=== PATIENT | female | born 1955 | race Caucasian/White ===

== ENCOUNTER 2021-04-06 09:00 | Day surgery (SDC) | payer OTHER ==
[2021-04-06] VITALS (12 sets, daily range): BP systolic 160–187; BP diastolic 84–97
[~2021-04-06] VITALS: Ht 160 cm; Wt 59.2 kg
[2021-04-06 07:32] LABS: HEMATOCRIT 34 % (35-52); HEMOGLOBIN 10.9 g/dL (11.5-16.0); MEAN CORPUSCULAR HEMOGLOBIN 27 pg (25-34); MEAN CORPUSCULAR HGB CONC 33 g/dL (32-36); MEAN CORPUSCULAR VOLUME 83 fL (80-99); MEAN PLATELET VOLUME 10.1 fL (9.0-12.2); PLATELET COUNT 459 10^3/uL (130-400); WHITE BLOOD COUNT 6.6 10^3/uL (4.3-11.0)
[2021-04-06 07:43] LABS: PROTHROMBIN TIME PATIENT 13.6 SEC (12.2-14.7)
[2021-04-06 07:52] LABS: ALBUMIN 4.1 GM/DL (3.2-4.5); BILIRUBIN,TOTAL 0.4 MG/DL (0.1-1.0); CALCIUM 9.4 MG/DL (8.5-10.1); CREATININE SERUM 1.24 MG/DL (0.60-1.30); POTASSIUM 3.8 MMOL/L (3.6-5.0); TOTAL PROTEIN 6.9 GM/DL (6.4-8.2)
--- NOTE | 2021-04-06 08:14 | Diagnostic Imaging Report ---
Indication: Coronary artery disease. Chest pain. FINDINGS: Portable chest. Lungs are well-aerated and clear. Heart is not enlarged. Median sternotomy changes are present. Pulmonary vasculature is normal. No pneumothorax or pleural effusion. IMPRESSION: Postsurgical changes otherwise normal portable chest. Dictated by: Dictated on workstation # [id number]
[~2021-04-06 09:00] MED LIST: ASPI-1238 PO; ATOR80TA76 PO; CARV25TA PO; CHOL200014 PO; CLOP75TA69 PO; CYAN500T8 PO; FURO-125 PO; HEParin (CATH LAB) 2,000 ML IV ONE; INSU100V6 SQ; LACT1CAP72 PO; LIDOCAINE 1% INJ 20 ML 20 ML VIAL ONE; METF-397 PO; NS IV 1000 ML 1,000 ML IV SCH; NS IV 1000 ML 1,000 ML ONE; PANT40TA52 PO; RAMI5CAP65 PO; UBID100C44 PO
[2021-04-06] MEDS ORDERED: HEParin 1000 UNIT/ML (10ML VIAL) FOR BOLUS ONE (09:19)
[2021-04-06] MEDS ORDERED: NITRO DRIP 25000 MCG/D5W 250 ML IV ONE (09:20)
[2021-04-06] MEDS ORDERED: fentaNYL INJ 100 MCG/2 ML AMP ONE (10:05)
[2021-04-06] MEDS ORDERED: MIDAZOLAM 2 MG/2 ML (VERSED) VIAL ONE (10:05)
[2021-04-06] MEDS ORDERED: CLOPIDOGREL 300 MG (PLAVIX) TABLET PO ONE (10:51)
[2021-04-06] MEDS ORDERED: ASPIRIN 325 MG (5 GR) TABLET ONE (10:51)
[2021-04-06] MEDS ORDERED: PATIENT MAY USE OWN MEDS, ALL PO SCH (11:00)
--- NOTE | 2021-04-06 11:03 | Conscious Sedation/ASA ---
Conscious Sedation Pre-Proced Time 09:00 ASA Score 3 For ASA 3 and 4: Consider anesthesia and medical clearance. Also, for patients with a history of failed moderate sedation consider anesthesia. Airway Lungs Heart ASA score ASA 1: a normal healthy patient ASA 2: a patient with a mild systemic disease (mid diabetes, controlled hypertension, obesity x ASA 3: a patient with a severe systemic disease that limits activity (angina, COPD, prior Myocardial infarction) ASA 4: a patient with an incapacitating disease that is a constant threat to life (CHF, renal failure) ASA 5: a moribund patient not expected to survive 24 hrs. (ruptured aneurysm) ASA 6: a declared brain- patient whose organs are being harvested. For emergent operations, add the letter E after the classification Mallampati Classification Grade 3 Sedation Plan Analgesia, Amnesia, Plan communicated to team members, Discussed options with patient/fam, Discussed risks with patient/fam The patient is an appropriate candidate to undergo the planned procedure, sedation, and anesthesia. The patient immediately re-assessed prior to indication. ANTOINETTE UQAN MD Apr 06, 2021 11:03
--- NOTE | 2021-04-06 11:09 | Peripheral Report ---
Peripheral Report Physician (s)/Import Coordination And Production Head (s) Physician ANTOINETTE QUAN MD Pre-Procedure Diagnosis Pre-Procedure Diagnosis: Peripheral arterial disease Post-Procedure Note Procedure Start Date: Apr 06, 2021 Name of Procedure: Bilateral lower extremity runoff Third order Additional imaging Stenting to the right SFA and popliteal Findings/Procedure Note PROCEDURE NOTE: 65-year-old lady with history of coronary artery disease, peripheral arterial disease, multiple intervention, has been having significant claudication, had an abnormal BENITO bilaterally more significant on the right. Scheduled for pe ripheral angiogram. After explaining the procedure to the patient, all pros and cons were explained, all questions were answered. The patient signed the consent and then she was placed on the cardiac catheterization laboratory. The patient was placed on the cardiac catheterization laboratory. Groin was prepped SL fashion local anesthesia was used. Sheath placed in the left femoral artery, runoff to the left leg was done. Rim catheter was used to cross over and a Storq wire was used, straight catheter advanced to the right common femoral artery, runoff to the right leg was done. Patient had total occlusion of the right SFA. 6000 units of heparin were used then I placed 45 cm, 6 Angolan sheath advanced instead of the short catheter then I used multiple wires to cross the total occlusion of the right SFA then advanced a mini catheter to the popliteal artery did manual injection showing position within the lumen then I did predilatation using 5.0 then 6.0 balloon and deployed multiple stents extending from the popliteal to the ostium of the right SFA, I was trying to avoid the popliteal but there was significant lesion behind the knee. Straight catheter was advanced to the popliteal artery and I did DSA imaging to the trifurcation and at the level of the foot. At the end of the case I exchanged the sheath back to a short 6 Angolan sheath and put a pigtail catheter in the abdominal aorta just above the bifurcation and evaluated the bifurcation, no complication noted. FINDINGS: Left lower extremity: Patient has multiple stents in the SFA with moderate to severe stenosis at multiple segments requiring evaluation at a later point Right lower extremity, total occlusion of the right SFA and popliteal, complex intervention with multiple wires balloons and stents. Deployment of total of 4 stents starting distally at the popliteal using superior 5.5 x 100 followed by superior 5.5 x 150 then superior 6.0 x 150 then at the ostium I used absolute Pro 6.0 x 40 with excellent results. Below the knee there is a single vessel running down to the foot the peroneal artery giving collaterals to both sides CONCLUSIONS: 1. Total occlusion of the right SFA and popliteal successful complex intervention with deployment of 4 stents with excellent results. 2. Below the knee on the right side there is severe stenosis with only single- vessel runoff down to the foot, the peroneal artery giving collaterals at the level of the foot 3. Multiple stents at the left SFA with moderate severe stenosis at multiple segment requiring intervention at a later point 4. Atherosclerotic disease at the abdominal aorta with heavy calcification at the iliac arteries, nonobstructive disease DISCUSSION AND RECOMMENDATIONS: Continue to maximize medical therapy, educated on smoking cessation, planning to intervene on the left leg at a later point Anesthesia Type: Conscious Sedation Estimated blood loss (mL): 35 ml Contrast Amount: 86 ml Total Radiation Dose: 194 mGy Post-Procedure Diagnosis Post-operative diagnosis: Claudication Peripheral arterial disease Hypertension Hyperlipidemia ANTOINETTE QUAN MD Apr 06, 2021 11:08
[2021-04-06] MEDS: NS IV 1000 ML 1,000 ML IV SCH ×3 (12:42→21:52)
[2021-04-06] MEDS ORDERED: RAMIPRIL 5 MG (ALTACE) CAP PO SCH (21:00)
[2021-04-07 03:00] LABS: HEMATOCRIT 32 % (35-52); HEMOGLOBIN 10.1 g/dL (11.5-16.0); MEAN CORPUSCULAR HEMOGLOBIN 27 pg (25-34); MEAN CORPUSCULAR HGB CONC 31 g/dL (32-36); MEAN CORPUSCULAR VOLUME 85 fL (80-99); MEAN PLATELET VOLUME 10.3 fL (9.0-12.2); PLATELET COUNT 405 10^3/uL (130-400); WHITE BLOOD COUNT 10.3 10^3/uL (4.3-11.0)
[2021-04-07 03:08] LABS: POTASSIUM 3.6 MMOL/L (3.6-5.0)
[2021-04-07 03:09] LABS: CALCIUM 9.3 MG/DL (8.5-10.1)
[2021-04-07 03:14] LABS: CREATININE SERUM 1.08 MG/DL (0.60-1.30)
[2021-04-07 03:46] VITALS: BP 167/79
[2021-04-07] MEDS ORDERED: METF-397 PO ×2 (07:13)
--- NOTE | 2021-04-07 07:14 | Discharge Inst-Post CATH ---
Discharge Inst-CATH/EP Problems Reviewed?: Yes Post Cardiac Cath/EP D/C Inst Follow Up/Plan Appointment with Dr Abraham in 1-2 weeks <b>CARDIAC CATH/EP PROCEDURE DISCHARGE INSTRUCTIONS</b> ACTIVITY * Go Home directly and rest. * Limit activity of the leg (or wrist if it was used) for 7 days including aerobics, swimming, jogging, bicycling, etc. * Restrict stair-climbing for 7 days if possible, if not, climb up with your non-cath leg, then bring together on the same step. * Avoid lifting, pushing, pulling or excessive movement of the affected extremity for 7 days. * Customary sexual activity may be resumed after 2 days-use caution not to use a position that strains or causes pain to the affected extremity. * No driving for 24 hours. * NO SMOKING. * Avoid straining for bowel movements for 7 days. * Gentle walking on level ground is allowed. * Returning to work will depend on the type of procedure and the results. Your doctor will discuss this with you. CALL YOUR DOCTOR FOR ANY OF THE FOLLOWING: *If bleeding from the puncture site occurs- Apply gentle pressure to site with clean cloth and call your doctor or EMS. * If a knot or lump forms under the skin, increases in size, or causes pain. * If bruising appears to be worsening or moving further down your leg instead of disappearing. * Temperature above 101 F. CARE OF YOUR GROIN INCISION; * Bruising or purple discoloration of the skin near the puncture site is common. * You may shower only, no bathtub bathing for 5 days. Be careful to avoid slipping as your leg may feel stiff. * If a closure device was used on your femoral artery, please see the attached guide regarding care of the device and your leg. * Leave dressing on FOR 24 hours. CARE OF YOUR WRIST INCISION; * Bruising or purple discoloration of the skin near the puncture site is common. * You may shower. * DO NOT submerge wrist. * Leave dressing on FOR 24 hours. ANTOINETTE ABRAHAM MD Apr 07, 2021 07:14
[2021-04-07 07:30] VITALS: BP 165/87
[2021-04-07] MEDS ORDERED: ASPIRIN E.C. 81 MG (ECOTRIN) TAB PO SCH (09:00)
[2021-04-07] MEDS ORDERED: PANTOPRAZOLE 40 MG (PROTONIX) TAB PO SCH (09:00)
[2021-04-07] MEDS ORDERED: FUROSEMIDE 20 MG (LASIX) TAB PO SCH (09:00)
[2021-04-07] MEDS ORDERED: CLOPIDOGREL 75 MG (PLAVIX) TABLET PO SCH (09:00)
--- NOTE | 2021-04-07 09:00 | Cardiology Progress Note ---
Subjective Date Seen by Provider: Apr 07, 2021 Time Seen by Provider: 08:58 Subjective/Events-last exam Patient laying down in bed, feeling better, asking to go home, groin is healing well. Review of Systems General: No Chills, No Night Sweats, No Fatigue, No Malaise, No Appetite, No Other HEENT: No Head Aches, No Visual Changes, No Eye Pain, No Ear Pain, No Dysphas ia, No Sinus Congestion, No Post Nasal Drip, No Sore Throat, No Other Pulmonary: No Dyspnea, No Cough, No Pleuritic Chest Pain, No Other Cardiovascular: No: Chest Pain, Palpitations, Orthopnea, Paroxysmal Noc. Dyspnea, Edema, Lt Headedness, Other Objective-Cardiology Exam Last Set of Vital Signs Vital Signs 04/07/21 07:30 Temp 37.3 Pulse 82 Resp 20 B/P (MAP) 165/87 (113) Pulse Ox 95 O2 Delivery Room Air I&O Intake and Output 04/07/21 00:00 Intake Total 1300 ml Balance 1300 ml Intake Oral 300 ml IV Total 1000 ml # Voids 4 General: Alert, Oriented X3, Cooperative HEENT: Atraumatic, PERRLA Neck: Supple, No JVD, No Thyromegaly Lungs: Clear to Auscultation, Normal Air Movement Heart: Regular Rate, Normal S1, Normal S2, No Murmurs Abdomen: Normal Bowel Sounds, Soft, No Tenderness, No Hepatosplenomegaly, No Masses Extremities: No Clubbing, No Cyanosis, No Edema, No Tenderness/Swelling, Other (Diminished pulse bilaterally, both feet are warm. Groin is healing well) Skin: No Rashes, No Breakdown, No Significant Lesion Neuro: Normal Gait, Normal Speech, Strength at 5/5 X4 Ext, Normal Tone, Sensa tion Intact Psych/Mental Status: Mental Status NL, Mood NL Results Lab Laboratory Tests 04/07/21 02:45 A/P-Cardiology Admission Diagnosis Claudication Peripheral arterial disease Coronary artery disease Hypertension Assessment/Plan Peripheral arterial disease as described below, 1. Total occlusion of the right SFA and popliteal successful complex intervention with deployment of 4 stents with excellent results. 2. Below the knee on the right side there is severe stenosis with only single- vessel runoff down to the foot, the peroneal artery giving collaterals at the level of the foot 3. Multiple stents at the left SFA with moderate severe stenosis at multiple segment requiring intervention at a later point 4. Atherosclerotic disease at the abdominal aorta with heavy calcification at the iliac arteries, nonobstructive disease Hypertension, monitor blood pressure Coronary artery disease clinically stable. Continue to monitor Hyperlipidemia, monitor lipids Tobaccoism, stopped smoking 2 years ago ANTOINETTE QUAN MD Apr 07, 2021 09:00
[2021-04-07 11:00] VITALS: BP 165/87
== END 2021-04-07 11:00 | disposition home or self-care (01) ==
LOC: CATH 09:00 → CSD 11:40 → CATH 04-07 11:00
PROVIDERS: ATTEND Internal Medicine Cardiovascular Disease
DX: E11.51 Type 2 diabetes mellitus with diabetic peripheral angiopathy without gangrene (principal); I70.219 Atherosclerosis of native arteries of extremities with intermittent claudication, unspecified extremity; E78.2 Mixed hyperlipidemia; I70.0 Atherosclerosis of aorta; I25.10 Atherosclerotic heart disease of native coronary artery without angina pectoris; J44.9 Chronic obstructive pulmonary disease, unspecified; I10 Essential (primary) hypertension; Z79.82 Long term (current) use of aspirin; Z79.899 Other long term (current) drug therapy; Z79.02 Long term (current) use of antithrombotics/antiplatelets; Z79.84 Long term (current) use of oral hypoglycemic drugs; Z79.891 Long term (current) use of opiate analgesic; Z87.891 Personal history of nicotine dependence; Z95.5 Presence of coronary angioplasty implant and graft; Z95.1 Presence of aortocoronary bypass graft; Z95.820 Peripheral vascular angioplasty status with implants and grafts
CPT/HCPCS: 36247; 36248; 37226; 71045; 75716; 80048; 80053; 80061; 85027 ×2; 85610; 85730; 87081; C1725 ×3; C1769 ×4; C1876 ×4; C1887 ×2; C1894 ×2; 36415

== ENCOUNTER 2021-04-27 13:00 | Day surgery (SDC) | payer OTHER ==
[2021-04-27] VITALS (8 sets, daily range): BP systolic 146–169; BP diastolic 75–123
[~2021-04-27] VITALS: Ht 160 cm; Wt 59.0 kg
[2021-04-27 11:45] LABS: HEMATOCRIT 36 % (35-52); HEMOGLOBIN 11.3 g/dL (11.5-16.0); MEAN CORPUSCULAR HEMOGLOBIN 27 pg (25-34); MEAN CORPUSCULAR HGB CONC 32 g/dL (32-36); MEAN CORPUSCULAR VOLUME 84 fL (80-99); MEAN PLATELET VOLUME 10.3 fL (9.0-12.2); PLATELET COUNT 595 10^3/uL (130-400); WHITE BLOOD COUNT 7.3 10^3/uL (4.3-11.0)
[2021-04-27 11:47] LABS: BILIRUBIN,URINE NEGATIVE (NEGATIVE); CLARITY,URINE CLEAR; COLOR,URINE YELLOW; GLUCOSE, URINE (UA) 3+ (NEGATIVE); KETONES,URINE NEGATIVE (NEGATIVE); LEUKOCYTE ESTERASE ,URINE 2+ (NEGATIVE); NITRITE,URINE NEGATIVE (NEGATIVE); PH,URINE 6.5 (5-9); PROTEIN,URINE TRACE (NEGATIVE)
[2021-04-27 11:55] LABS: PROTHROMBIN TIME PATIENT 13.5 SEC (12.2-14.7)
[2021-04-27 11:59] LABS: BACTERIA,URINE FEW /HPF; RBC,URINE 0-2 /HPF; WBC,URINE 50-100 /HPF
[2021-04-27 12:05] LABS: ALBUMIN 4.4 GM/DL (3.2-4.5); BILIRUBIN,TOTAL 0.5 MG/DL (0.1-1.0); CALCIUM 10.4 MG/DL (8.5-10.1); CREATININE SERUM 1.42 MG/DL (0.60-1.30); POTASSIUM 4.3 MMOL/L (3.6-5.0); TOTAL PROTEIN 7.7 GM/DL (6.4-8.2)
--- NOTE | 2021-04-27 12:07 | Diagnostic Imaging Report ---
INDICATION: pad,cad. COMPARISON: 04/06/2021 FINDINGS: Single frontal view of the chest demonstrates normal heart size and pulmonary vascularity. The lungs are well aerated and clear. No large pleural effusion or pneumothorax is seen. The visualized osseous structures show no acute abnormalities. Sternotomy wires and calcified aortic atherosclerosis are noted. IMPRESSION: 1. No acute cardiopulmonary process. Dictated by: Dictated on workstation # [id number]
--- NOTE | 2021-04-27 12:48 | Conscious Sedation/ASA ---
Conscious Sedation Pre-Proced Time 12:48 ASA Score 3 For ASA 3 and 4: Consider anesthesia and medical clearance. Also, for patients with a history of failed moderate sedation consider anesthesia. Airway Lungs Heart ASA score ASA 1: a normal healthy patient ASA 2: a patient with a mild systemic disease (mid diabetes, controlled hypertension, obesity x ASA 3: a patient with a severe systemic disease that limits activity (angina, COPD, prior Myocardial infarction) ASA 4: a patient with an incapacitating disease that is a constant threat to life (CHF, renal failure) ASA 5: a moribund patient not expected to survive 24 hrs. (ruptured aneurysm) ASA 6: a declared brain- patient whose organs are being harvested. For emergent operations, add the letter E after the classification Mallampati Classification Grade 3 Sedation Plan Analgesia, Amnesia, Plan communicated to team members, Discussed options with patient/fam, Discussed risks with patient/fam The patient is an appropriate candidate to undergo the planned procedure, sedation, and anesthesia. The patient immediately re-assessed prior to indication. ANTOINETTE QUAN MD Apr 27, 2021 12:48
[~2021-04-27 13:00] MED LIST changes: +ACET325T38 PO
[2021-04-27] MEDS ORDERED: CLOPIDOGREL 75 MG (PLAVIX) TABLET ONE (13:53)
[2021-04-27] MEDS ORDERED: ASPIRIN 325 MG (5 GR) TABLET ONE (13:53)
[2021-04-27] MEDS ORDERED: METF-397 PO ×2 (13:55)
--- NOTE | 2021-04-27 13:55 | Discharge Inst-Post CATH ---
Discharge Inst-CATH/EP Problems Reviewed?: Yes Post Cardiac Cath/EP D/C Inst Follow Up/Plan Hold Metformin for [address] Abraham's office in 2 to 4 weeks <b>CARDIAC CATH/EP PROCEDURE DISCHARGE INSTRUCTIONS</b> ACTIVITY * Go Home directly and rest. * Limit activity of the leg (or wrist if it was used) for 7 days including aerobics, swimming, jogging, bicycling, etc. * Restrict stair-climbing for 7 days if possible, if not, climb up with your non-cath leg, then bring together on the same step. * Avoid lifting, pushing, pulling or excessive movement of the affected extremity for 7 days. * Customary sexual activity may be resumed after 2 days-use caution not to use a position that strains or causes pain to the affected extremity. * No driving for 24 hours. * NO SMOKING. * Avoid straining for bowel movements for 7 days. * Gentle walking on level ground is allowed. * Returning to work will depend on the type of procedure and the results. Your doctor will discuss this with you. CALL YOUR DOCTOR FOR ANY OF THE FOLLOWING: *If bleeding from the puncture site occurs- Apply gentle pressure to site with clean cloth and call your doctor or EMS. * If a knot or lump forms under the skin, increases in size, or causes pain. * If bruising appears to be worsening or moving further down your leg instead of disappearing. * Temperature above 101 F. CARE OF YOUR GROIN INCISION; * Bruising or purple discoloration of the skin near the puncture site is common. * You may shower only, no bathtub bathing for 5 days. Be careful to avoid slipping as your leg may feel stiff. * If a closure device was used on your femoral artery, please see the attached guide regarding care of the device and your leg. * Leave dressing on FOR 24 hours. CARE OF YOUR WRIST INCISION; * Bruising or purple discoloration of the skin near the puncture site is common. * You may shower. * DO NOT submerge wrist. * Leave dressing on FOR 24 hours. ANTOINETTE ABRAHAM MD Apr 27, 2021 13:55
[2021-04-27] MEDS ORDERED: ACETAMINOPHEN 325 MG TABLET PO PRN (14:00)
[2021-04-27] MEDS ORDERED: NS IV 1000 ML 1,000 ML IV SCH (14:00)
[2021-04-27] MEDS ORDERED: PATIENT MAY USE OWN MEDS, ALL PO SCH (14:00)
--- NOTE | 2021-04-27 14:00 | Peripheral Report ---
Peripheral Report Physician (s)/Mechanical Integrity Specialist (s) Physician ANTOINETTE QUAN MD Pre-Procedure Diagnosis Pre-Procedure Diagnosis: Peripheral arterial disease Post-Procedure Note Procedure Start Date: Apr 27, 2021 Name of Procedure: Balloon angioplasty to the left SFA Additional imaging Findings/Procedure Note PROCEDURE NOTE: 65-year-old lady with peripheral arterial disease, has severe stenosis in the left SFA stent, noted during the procedure done recently, scheduled for staged intervention After explaining the procedure to the patient, all pros and cons were explained, all questions were answered. The patient signed the consent and then she was placed on the cardiac catheterization laboratory. The patient was placed on the cardiac catheterization laboratory. Groin was prepped SL fashion local anesthesia was used. Sheath placed in the right femoral artery, 5 Salvadorean sheath was placed then using a rim catheter it was exchanged using long Storq wire to 6 Salvadorean 45 cm sheath, command 18 wire was advanced and parked in the distal popliteal artery then balloon angioplasty using [place] 6 x 200 with multiple inflation was done within the stent. Angiogram showed excellent results. I did DSA imaging at the level of the trifurcation and the level of the foot for evaluation due to the significant disease noted. FINDINGS: Severe multisegment stenosis within the stent that is extending from the ostium of the left SFA to the popliteal artery with successful balloon angioplasty using [place] 6 x 200 with excellent results. DSA imaging of the foot below the trifurcation showed total occlusion of the anterior tibial artery on the left side subtle sluggish reconstruction at the level of the foot, moderate disease in the posterior tibial artery and peroneal artery. Angiogram done through the sheath to evaluate sheath position I was able to runoff down to the trifurcation showing excellent flow on the right side CONCLUSIONS: 1. Successful balloon angioplasty for multiple segment within the stent extending from the ostium of the left SFA to the popliteal artery 2. Total occlusion of the anterior tibial artery, moderate disease in the posterior tibial and peroneal artery on the left 3. Patent stent on the right SFA with excellent flow DISCUSSION AND RECOMMENDATIONS: Continue to maximize medical therapy Anesthesia Type: Conscious Sedation Estimated blood loss (mL): 25 ml Contrast Amount: 30 ml Total Radiation Dose: 48 mGy Post-Procedure Diagnosis Post-operative diagnosis: Claudication Peripheral arterial disease Hypertension Hyperlipidemia ANTOINETTE QUAN MD Apr 27, 2021 14:00
[2021-04-27] MEDS ORDERED: ASPIRIN E.C. 81 MG (ECOTRIN) TAB PO SCH (21:00)
[2021-04-27] MEDS ORDERED: RAMIPRIL 5 MG (ALTACE) CAP PO SCH (21:00)
[2021-04-28] MEDS ORDERED: VITAMIN D3 25 MCG (1,000 UNITS) TABLET PO SCH (09:00)
[2021-04-28] MEDS ORDERED: FUROSEMIDE 20 MG (LASIX) TAB PO SCH (09:00)
[2021-04-28] MEDS ORDERED: PANTOPRAZOLE 40 MG (PROTONIX) TAB PO SCH (09:00)
[2021-04-28] MEDS ORDERED: CLOPIDOGREL 75 MG (PLAVIX) TABLET PO SCH (09:00)
== END 2021-04-27 18:46 | disposition home or self-care (01) ==
LOC: CATH 13:00 → ICU 14:31 → CATH 18:46
PROVIDERS: ATTEND Internal Medicine Cardiovascular Disease
DX: E11.51 Type 2 diabetes mellitus with diabetic peripheral angiopathy without gangrene (principal); I25.10 Atherosclerotic heart disease of native coronary artery without angina pectoris; I65.29 Occlusion and stenosis of unspecified carotid artery; I10 Essential (primary) hypertension; J44.9 Chronic obstructive pulmonary disease, unspecified; E78.2 Mixed hyperlipidemia; Z79.02 Long term (current) use of antithrombotics/antiplatelets; Z79.84 Long term (current) use of oral hypoglycemic drugs; Z79.899 Other long term (current) drug therapy; Z87.891 Personal history of nicotine dependence; Z79.891 Long term (current) use of opiate analgesic; Z83.3 Family history of diabetes mellitus
CPT/HCPCS: 36248; 37224; 71045; 80053; 80061; 81000; 82947; 85027; 85610; 85730; 87077; 87081; 87088; C1725; C1760; C1769 ×2; C1887 ×2; C1894 ×2; 36415

== ENCOUNTER → 2021-12-02 | Outpatient (CLI) | payer MEDICARE, OTHER ==
[~2021-12-02] MED LIST changes: -HEParin (CATH LAB) 2,000 ML IV ONE; -LIDOCAINE 1% INJ 20 ML 20 ML VIAL ONE; -NS IV 1000 ML 1,000 ML IV SCH; -NS IV 1000 ML 1,000 ML ONE
== END ==
LOC: CARD 11:00
PROVIDERS: ATTEND Physician Assistant
DX: I11.9 Hypertensive heart disease without heart failure (principal)
CPT/HCPCS: 93306

== ENCOUNTER → 2021-12-05 | Outpatient (CLI) | payer MEDICARE, OTHER ==
[~2021-12-05] VITALS: Ht 160 cm; Wt 63.0 kg
[~2021-12-05] MED LIST changes: +CATHETER FLUSH 10 ML SYR IVP PRN; +REGADENOSON 0.4 MG/5 ML SYR (LEXISCAN) IV ONE
[2021-12-05 09:39] VITALS: BP 155/82
--- NOTE | 2021-12-05 11:27 | Cardiology Stress Test Report ---
Stress Test Report Date of Procedure/Referring: Date of Procedure: Dec 05, 2021 Nuvia Atwood Admitting Physician Indications: CAD Baseline Heart Rate: 67 Baseline Blood Pressure: Blood Pressure Systolic: 155 Blood Pressure Diastolic: 82 Baseline Vitals Vital Signs Date Time Temp Pulse Resp B/P (MAP) Pulse Ox O2 Delivery O2 Flow Rate FiO2 12/05/21 09:39 69 155/82 (106) Baseline EKG: Baseline EKG: NSR Summary After explaining the procedure to the patient, she signed a consent and then brought to the stress nuclear laboratory. Patient received 0.4 mg Lexiscan for stress test, ECG, heart rate and blood pressure were monitored continuously. Resting and stress dose of radio tracer were injected, imaging was acquired and reviewed in short axis, horizontal long axis and vertical long axis views. TID: 1.05 SSS: 11 SDS: 4 EF: 37 1. Patient tolerated Lexiscan well 2. Reversible ischemia involving the inferolateral and anterolateral wall 3. Hypokinesia involving the inferior wall and inferolateral wall, ejection fraction 37% ANTOINETTE QUAN MD Dec 05, 2021 11:27
== END ==
LOC: CARD 08:45
PROVIDERS: ATTEND Physician Assistant
DX: I25.10 Atherosclerotic heart disease of native coronary artery without angina pectoris (principal)
CPT/HCPCS: 78452; 93017; A9502

== ENCOUNTER 2021-12-16 09:00 | Day surgery (SDC) | payer MEDICARE, OTHER ==
[~2021-12-16] VITALS: Ht 160 cm; Wt 62.6 kg
[2021-12-16] VITALS (15 sets, daily range): BP systolic 120–163; BP diastolic 59–80
[2021-12-16 07:30] LABS: HEMATOCRIT 36 % (35-52); HEMOGLOBIN 11.4 g/dL (11.5-16.0); MEAN CORPUSCULAR HEMOGLOBIN 26 pg (25-34); MEAN CORPUSCULAR HGB CONC 32 g/dL (32-36); MEAN CORPUSCULAR VOLUME 82 fL (80-99); MEAN PLATELET VOLUME 9.9 fL (9.0-12.2); PLATELET COUNT 484 10^3/uL (130-400); WHITE BLOOD COUNT 6.4 10^3/uL (4.3-11.0)
[2021-12-16 07:31] LABS: BILIRUBIN,URINE NEGATIVE (NEGATIVE); CLARITY,URINE CLEAR; COLOR,URINE YELLOW; GLUCOSE, URINE (UA) 1+ (NEGATIVE); KETONES,URINE NEGATIVE (NEGATIVE); LEUKOCYTE ESTERASE ,URINE NEGATIVE (NEGATIVE); NITRITE,URINE NEGATIVE (NEGATIVE); PROTEIN,URINE NEGATIVE (NEGATIVE)
--- NOTE | 2021-12-16 07:39 | Diagnostic Imaging Report ---
INDICATION: Claudication. EXAMINATION: Chest 12/16/2021. COMPARISON: 04/27/2021 FINDINGS: Single view chest. The heart and pulmonary vasculature normal. Lungs and pleural spaces clear. Sternotomy wires noted. No pneumothorax or infiltrates. IMPRESSION: 1. No acute cardiopulmonary process. Dictated by: Dictated on workstation # [id number]
[2021-12-16 07:41] LABS: BACTERIA,URINE NEGATIVE /HPF; SQUAMOUS EPITHELIAL CELL,UR 0-2 /HPF
[2021-12-16 08:00] LABS: ALBUMIN 4.2 GM/DL (3.2-4.5); BILIRUBIN,TOTAL 0.3 MG/DL (0.1-1.0); CALCIUM 9.2 MG/DL (8.5-10.1); CREATININE SERUM 1.22 MG/DL (0.60-1.30); POTASSIUM 3.7 MMOL/L (3.6-5.0); TOTAL PROTEIN 6.9 GM/DL (6.4-8.2)
--- NOTE | 2021-12-16 08:56 | Conscious Sedation/ASA ---
Conscious Sedation Pre-Proced Time 08:56 ASA Score 3 For ASA 3 and 4: Consider anesthesia and medical clearance. Also, for patients with a history of failed moderate sedation consider anesthesia. Airway Lungs Heart ASA score ASA 1: a normal healthy patient ASA 2: a patient with a mild systemic disease (mid diabetes, controlled hypertension, obesity x ASA 3: a patient with a severe systemic disease that limits activity (angina, COPD, prior Myocardial infarction) ASA 4: a patient with an incapacitating disease that is a constant threat to life (CHF, renal failure) ASA 5: a moribund patient not expected to survive 24 hrs. (ruptured aneurysm) ASA 6: a declared brain- patient whose organs are being harvested. For emergent operations, add the letter E after the classification Mallampati Classification Grade 3 Sedation Plan Analgesia, Amnesia, Plan communicated to team members, Discussed options with patient/fam, Discussed risks with patient/fam The patient is an appropriate candidate to undergo the planned procedure, sedation, and anesthesia. The patient immediately re-assessed prior to indication. ANTOINETTE QUAN MD Dec 16, 2021 08:56
[~2021-12-16 09:00] MED LIST changes: -CATHETER FLUSH 10 ML SYR IVP PRN; +HEParin (CATH LAB) 2,000 ML IV ONE; +HEParin 1000 UNIT/ML (10ML VIAL) FOR BOLUS ONE; +LIDOCAINE 1% INJ 20 ML VIAL ONE; +MIDAZOLAM 5 MG/5 ML (VERSED) VIAL ONE; +NS IV 1000 ML 1,000 ML IV SCH; +NS IV 1000 ML 1,000 ML ONE; -REGADENOSON 0.4 MG/5 ML SYR (LEXISCAN) IV ONE; +UMEC1BLS IH; +fentaNYL INJ 100 MCG/2 ML AMP ONE
[2021-12-16] MEDS ORDERED: NITROGLYCERIN 50 MG/10 ML VIAL IV ONE (09:24)
[2021-12-16] MEDS ORDERED: NS (IVPB) 250 ML ONE (09:25)
[2021-12-16] MEDS ORDERED: PATIENT MAY USE OWN MEDS, ALL PO SCH (10:00)
[2021-12-16] MEDS ORDERED: NS IV 1000 ML 1,000 ML IV SCH (10:00)
--- NOTE | 2021-12-16 10:05 | Cardiac Cath Report ---
Cardiac Cath Report Physician (s)/Information Resources Manager (s) Physician ANTOINETTE QUAN MD Pre-Procedure Diagnosis Pre-Procedure Diagnosis: Peripheral arterial disease, coronary artery disease Post-Procedure Note Procedure Start Date: Dec 16, 2021 Name of Procedure: Left heart catheterization Vein graft angiogram LOERA angiogram Bilateral lower extremities runoff Second-order Additional imaging of the left foot Balloon angioplasty to the left SFA and popliteal artery Findings/Procedure Note PROCEDURE NOTE: 66-year-old lady with extensive peripheral arterial disease and coronary artery disease, has been having significant claudication, had an abnormal stress test, scheduled for peripheral angiogram and coronary angiogram. After explaining the procedure to the patient, all pros and cons were explained, all questions were answered. The patient signed the consent and then she was placed on the cardiac catheterization laboratory. Groin was prepped SL fashion local anesthesia was used. Sheath placed in the right femoral artery. Sanam right and left catheter were used to access the coronary system. Sanam right was prolapsed to the left ventricular cavity, pressure was measured, engaged the vein graft and the LOERA and angiogram was done then I pulled it down to the bifurcation and did runoff to the left leg. Then I exchanged the catheter with a straight catheter and advanced it to the left SFA and runoff to the left leg was done at that time I decided to proceed with percutaneous intervention. Sheath was exchanged into long 6 [place] sheath. 5000 units of heparin were given, command 18 wire was advanced to the distal anterior tibial artery then patient had multiple area of severe stenosis/subtotal occlusion within the stent in the left SFA and I used [place] 6 x 150 balloon with multiple inflations extending from the ostium of the SFA down to the popliteal artery. Angiogram showed excellent results, still have single-vessel runoff to the left foot. During pullback of the sheath I noticed significant gradient across the ostium of the left iliac artery I did angiogram which showed moderate stenosis. I advanced the pigtail catheter and did multiple injection and could not confirm the stenosis, subsequently I advanced a rim catheter and did multiple angiograms to the left iliac artery. And the lesion appeared to be mild to moderate. Sheath was exchanged into short 6 [place] sheath. Runoff to the right leg was done. At the end of the procedure the sheath was removed. Closure device was deployed FINDINGS: Hemodynamics LV 131/11, end-diastolic pressure of 11 Aorta 135/56 mean of 87 ANATOMY: Left Main has moderate disease Left Anterior Descending is occluded at the midportion LOERA to LAD is patent with small vessel disease distally Left Circumflex is occluded with patent vein graft to the obtuse marginal branch with good flow distally Right Coronary Artery is occluded with patent vein graft to the right PDA with small vessel disease distally LV Gram was not done, pressure was measured Vein graft angiogram: The upper vein graft is vein graft to the obtuse marginal branch that is patent with good flow distally The lower vein graft is the vein graft to the right PDA that is patent with slow flow due to small vessel disease distally LOERA angiogram was done with nonselective angiogram showing good flow in the LAD with small vessel disease Left lower extremity: Severe multiple segment stenosis in the stent in the SFA successful balloon angioplasty using Vardaman 6 x 150 with excellent results. The anterior tibial artery is occluded chronically, posterior tibial is patent with good flow distally. The ostium of the left common iliac has moderate disease Right lower extremity: Total occlusion at the ostium of the right SFA reconstructed by collateral at the popliteal level CONCLUSION: 1. Total occlusion of the LAD with patent LOERA to LAD with small vessel disease 2. Total occlusion of the circumflex artery with patent vein graft to the obtuse marginal with good flow distally 3. Total occlusion of the right coronary artery with patent vein graft to the right PDA with small vessel disease and slow flow distally 4. Normal left ventricular end-diastolic pressure 5. Moderate ostial left iliac artery stenosis nonobstructive disease 6. Subtotal occlusion of the left SFA within assess stent with successful balloon angioplasty using Vardaman 6 x 150 with multiple inflation with excellent results 7. Total occlusion of the left anterior tibial artery that is chronic, patent left posterior tibial artery down to the foot and patent peroneal artery 8. Total occlusion of the right SFA reconstructed by collateral at the right popliteal artery DISCUSSION AND RECOMMENDATION: I will continue maximizing medical therapy and planning to intervene on the right SFA due to claudication. Anesthesia Type: Conscious Sedation Estimated blood loss (mL): 30 ml Contrast Amount: 95 ml Total Radiation Dose: 432 mGy Post-Procedure Diagnosis Post-operative diagnosis: Claudication Peripheral arterial disease Coronary artery disease Hypertension Hyperlipidemia ANTOINETTE QUAN MD Dec 16, 2021 10:05
[2021-12-16] MEDS ORDERED: METF-397 PO ×2 (10:09)
--- NOTE | 2021-12-16 10:10 | Discharge Inst-Post CATH ---
Discharge Inst-CATH/EP Problems Reviewed?: Yes Post Cardiac Cath/EP D/C Inst Follow Up/Plan Hold metformin for 48 hours start metformin on Sunday and stop it again on Sunday in preparation for angiogram next Sunday <b>CARDIAC CATH/EP PROCEDURE DISCHARGE INSTRUCTIONS</b> ACTIVITY * Go Home directly and rest. * Limit activity of the leg (or wrist if it was used) for 7 days including aerobics, swimming, jogging, bicycling, etc. * Restrict stair-climbing for 7 days if possible, if not, climb up with your non-cath leg, then bring together on the same step. * Avoid lifting, pushing, pulling or excessive movement of the affected extremity for 7 days. * Customary sexual activity may be resumed after 2 days-use caution not to use a position that strains or causes pain to the affected extremity. * No driving for 24 hours. * NO SMOKING. * Avoid straining for bowel movements for 7 days. * Gentle walking on level ground is allowed. * Returning to work will depend on the type of procedure and the results. Your doctor will discuss this with you. CALL YOUR DOCTOR FOR ANY OF THE FOLLOWING: *If bleeding from the puncture site occurs- Apply gentle pressure to site with clean cloth and call your doctor or EMS. * If a knot or lump forms under the skin, increases in size, or causes pain. * If bruising appears to be worsening or moving further down your leg instead of disappearing. * Temperature above 101 F. CARE OF YOUR GROIN INCISION; * Bruising or purple discoloration of the skin near the puncture site is common. * You may shower only, no bathtub bathing for 5 days. Be careful to avoid slipping as your leg may feel stiff. * If a closure device was used on your femoral artery, please see the attached guide regarding care of the device and your leg. * Leave dressing on FOR 24 hours. CARE OF YOUR WRIST INCISION; * Bruising or purple discoloration of the skin near the puncture site is common. * You may shower. * DO NOT submerge wrist. * Leave dressing on FOR 24 hours. ANTOINETTE QUAN MD Dec 16, 2021 10:10
[2021-12-16] MEDS ORDERED: CLOPIDOGREL 75 MG (PLAVIX) TABLET PO NR (11:00)
[2021-12-16] MEDS ORDERED: ASPIRIN 325 MG (5 GR) TABLET PO NR (11:00)
[2021-12-16] MEDS ORDERED: CLOPIDOGREL 300 MG (PLAVIX) TABLET PO NR (11:00)
== END 2021-12-16 17:46 | disposition home or self-care (01) ==
LOC: CATH 09:00 → CSD 10:17 → CATH 17:46
PROVIDERS: ATTEND Internal Medicine Cardiovascular Disease
DX: I25.10 Atherosclerotic heart disease of native coronary artery without angina pectoris (principal); I10 Essential (primary) hypertension; I77.1 Stricture of artery; I70.202 Unspecified atherosclerosis of native arteries of extremities, left leg; E11.51 Type 2 diabetes mellitus with diabetic peripheral angiopathy without gangrene; I65.23 Occlusion and stenosis of bilateral carotid arteries; I70.92 Chronic total occlusion of artery of the extremities; E78.2 Mixed hyperlipidemia; J44.9 Chronic obstructive pulmonary disease, unspecified; Z87.891 Personal history of nicotine dependence; Z95.1 Presence of aortocoronary bypass graft; Z79.899 Other long term (current) drug therapy; Z79.84 Long term (current) use of oral hypoglycemic drugs
CPT/HCPCS: 36246; 36248; 37224; 71045; 75716; 80053; 80061; 81000; 85027; 85347; 85610; 85730; 87081; 93005; 93459; C1725; C1760; C1769 ×2; C1887; C1894 ×2; 36415

== ENCOUNTER 2021-12-23 10:00 | Day surgery (SDC) | payer MEDICARE, OTHER ==
[~2021-12-23] VITALS: Ht 160 cm; Wt 62.6 kg
[2021-12-23] VITALS (11 sets, daily range): BP systolic 108–153; BP diastolic 60–87
[2021-12-23] MEDS: NS IV 1000 ML 1,000 ML IV SCH ×4 (08:19→23:30)
[2021-12-23 08:39] LABS: HEMATOCRIT 36 % (35-52); HEMOGLOBIN 11.7 g/dL (11.5-16.0); MEAN CORPUSCULAR HEMOGLOBIN 26 pg (25-34); MEAN CORPUSCULAR HGB CONC 32 g/dL (32-36); MEAN CORPUSCULAR VOLUME 80 fL (80-99); MEAN PLATELET VOLUME 10.5 fL (9.0-12.2); PLATELET COUNT 457 10^3/uL (130-400); WHITE BLOOD COUNT 6.7 10^3/uL (4.3-11.0)
[2021-12-23 08:58] LABS: ALBUMIN 4.2 GM/DL (3.2-4.5); BILIRUBIN,TOTAL 0.3 MG/DL (0.1-1.0); CALCIUM 9.6 MG/DL (8.5-10.1); CREATININE SERUM 1.3 MG/DL (0.60-1.30); TOTAL PROTEIN 7.2 GM/DL (6.4-8.2)
[~2021-12-23 10:00] MED LIST changes: -CHOL200014 PO; +CHOL200052 PO; +CINN500C2 PO; -HEParin 1000 UNIT/ML (10ML VIAL) FOR BOLUS ONE; -MIDAZOLAM 5 MG/5 ML (VERSED) VIAL ONE; -NS IV 1000 ML 1,000 ML IV SCH; -fentaNYL INJ 100 MCG/2 ML AMP ONE
[2021-12-23] MEDS ORDERED: fentaNYL INJ 100 MCG/2 ML AMP ONE ×2 (10:39→11:56)
[2021-12-23] MEDS ORDERED: MIDAZOLAM 5 MG/5 ML (VERSED) VIAL ONE (10:40)
--- NOTE | 2021-12-23 10:42 | Conscious Sedation/ASA ---
Conscious Sedation Pre-Proced Time 10:41 ASA Score 3 For ASA 3 and 4: Consider anesthesia and medical clearance. Also, for patients with a history of failed moderate sedation consider anesthesia. Airway Lungs Heart ASA score ASA 1: a normal healthy patient ASA 2: a patient with a mild systemic disease (mid diabetes, controlled hypertension, obesity x ASA 3: a patient with a severe systemic disease that limits activity (angina, COPD, prior Myocardial infarction) ASA 4: a patient with an incapacitating disease that is a constant threat to life (CHF, renal failure) ASA 5: a moribund patient not expected to survive 24 hrs. (ruptured aneurysm) ASA 6: a declared brain- patient whose organs are being harvested. For emergent operations, add the letter E after the classification Mallampati Classification Grade 3 Sedation Plan Analgesia, Amnesia, Plan communicated to team members, Discussed options with patient/fam, Discussed risks with patient/fam The patient is an appropriate candidate to undergo the planned procedure, sedation, and anesthesia. The patient immediately re-assessed prior to indication. ANTOINETTE QUAN MD Dec 23, 2021 10:41
[2021-12-23] MEDS ORDERED: HEParin 1000 UNIT/ML (10ML VIAL) FOR BOLUS ONE (11:07)
[2021-12-23] MEDS ORDERED: MIDAZOLAM 2 MG/2 ML (VERSED) VIAL ONE (11:56)
[2021-12-23] MEDS ORDERED: NITRO DRIP 25000 MCG/D5W 250 ML IV ONE (12:22)
[2021-12-23] MEDS ORDERED: ASPIRIN 325 MG (5 GR) TABLET ONE (13:04)
[2021-12-23] MEDS ORDERED: NS IV 1000 ML 1,000 ML ONE (13:05)
[2021-12-23] MEDS ORDERED: CLOPIDOGREL 300 MG (PLAVIX) TABLET PO ONE (13:05)
[2021-12-23] MEDS ORDERED: ACETAMINOPHEN 325 MG TABLET PO PRN (13:30)
[2021-12-23] MEDS ORDERED: PATIENT MAY USE OWN MEDS, ALL PO SCH (13:30)
--- NOTE | 2021-12-23 13:47 | Peripheral Report ---
Peripheral Report Physician (s)/Ballistics Professor (s) Physician ANTOINETTE QUAN MD Pre-Procedure Diagnosis Pre-Procedure Diagnosis: Peripheral arterial disease, coronary artery disease Post-Procedure Note Procedure Start Date: Dec 23, 2021 Name of Procedure: Bilateral lower extremities runoff Third order Additional imaging x3 ACUTE CARE SURGEON to the right SFA and popliteal artery ACUTE CARE SURGEON to the right tibioperoneal trunk ACUTE CARE SURGEON to the right posterior tibial artery ACUTE CARE SURGEON to the right peroneal artery Findings/Procedure Note PROCEDURE NOTE: 66-year-old lady with known extensive peripheral arterial disease, has been having increasing claudication, had an abnormal BENITO. She was scheduled for peripheral angiogram. After explaining the procedure to the patient, all pros and cons were explained, all questions were answered. The patient signed the consent and then she was placed on the cardiac catheterization laboratory. The patient was placed on the cardiac catheterization laboratory. Groin was prepped SL fashion local anesthesia was used. Sheath placed in the left femoral artery, runoff to the left leg was done then using a rim catheter I advanced straight wire and placed a straight catheter in the right common femoral artery, runoff was done. Patient has total occlusion in the proximal SFA. A total of 5000 units of heparin and then 2000 units of heparin were given during the procedure. 6 [place] 45 cm sheath was used and placed in the right common femoral artery. I was initially able to cross over with command 18 to the mid SFA then I was unable to advance the wire. I placed a mini catheter and did the manual inje ction then retracted the catheter and used command 14 and after manipulation I was able to advance it to the popliteal artery. Then I tried with the [place] 6 x 200 balloon and I was unable to advance the balloon I retracted the balloon and retracted the wire and redirected the wire and advanced it to the distal portion with the assistance of a mini catheter then I was able to advance [place] 4 x 100 balloon and did multiple inflation from the popliteal to the ostium of the SFA then I advanced [place] 6 x 200 and did multiple inflations. Angiogram showed excellent results in the SFA and popliteal artery, there is total occlusion of the tibioperoneal trunk and the peroneal artery and anterior tibial artery. I advanced command 14 wire in the anterior tibial artery, placed the mini catheter and did injection the artery is totally occluded getting collateral, not amendable to intervention I advance command 14 in the tibial peroneal trunk then to the peroneal artery and did multiple inflation using 3 x 80 balloon then I redirected the wire in the posterior tibial artery and did 2 inflation using the same balloon. Retracted the balloon and did angiogram which showed patent posterior tibial artery but occluded peroneal artery I advanced the wire again in the peroneal artery and did multiple ballooning deflation using 2.5 x 120 balloon and did selective angiogram. In the tibioperoneal trunk and in the posterior tibial artery. After multiple long inflation using the 2.5 x 20 mm [place] balloon there was significant improvement. Final angiogram was showing excellent results. Catheter was retracted and exchanged and used short 6 Danish sheath. Closure device was deployed FINDINGS: Right lower extremity: 1. Total occlusion within the stent in the right SFA extending to the popliteal artery. Successful balloon angioplasty using [place] 4 x 100 then 6 x 200 with excellent results. 2. Total occlusion of the anterior tibial artery that is chronic, not amendable to intervention 3. Total occlusion of the right peroneal artery and tibioperoneal trunk with successful balloon angioplasty using [place] 3 x 80 and 2.5 x 120 4. Subtotal occlusion of the right posterior tibial artery with successful balloon angioplasty using [place] 3 x 80. Left lower extremity: 1. Left SFA, patent stent extending from the ostium of the left SFA to the popliteal artery with mild to moderate disease, 1 area of moderate to severe stenosis in the midportion 2. Total occlusion of the left anterior tibial artery reconstructed by collaterals 3. Mild to moderate disease in the left peroneal artery and posterior tibial artery CONCLUSIONS: 1. Severe peripheral arterial disease with total occlusion of all the vessels in the right leg successful complex intervention with balloon angioplasty to the right SFA, right popliteal artery, tibioperoneal trunk, posterior tibial artery and peroneal artery. 2. Total occlusion of the right anterior tibial artery that is chronic receiving collaterals. 3. Moderate left in-stent restenosis in the SFA with 1 area of moderate to severe stenosis 4. Total occlusion of the left anterior tibial artery reconstructed by collaterals DISCUSSION AND RECOMMENDATIONS: Continue to maximize medical therapy and monitor. Anesthesia Type: Conscious Sedation Estimated blood loss (mL): 35 ml Contrast Amount: 100 ml Total Radiation Dose: 130 mGy Post-Procedure Diagnosis Post-operative diagnosis: Claudication Peripheral arterial disease Hypertension Hyperlipidemia ANTOINETTE QUAN MD Dec 23, 2021 13:46
[2021-12-23] MEDS ORDERED: RAMIPRIL 2.5 MG (ALTACE) CAP PO SCH (21:00)
[2021-12-24 04:00] VITALS: BP 143/85
[2021-12-24 05:18] LABS: HEMATOCRIT 32 % (35-52); HEMOGLOBIN 10.1 g/dL (11.5-16.0); MEAN CORPUSCULAR HEMOGLOBIN 26 pg (25-34); MEAN CORPUSCULAR HGB CONC 32 g/dL (32-36); MEAN CORPUSCULAR VOLUME 81 fL (80-99); MEAN PLATELET VOLUME 10.3 fL (9.0-12.2); PLATELET COUNT 392 10^3/uL (130-400); WHITE BLOOD COUNT 7.2 10^3/uL (4.3-11.0)
[2021-12-24 05:35] LABS: POTASSIUM 3.5 MMOL/L (3.6-5.0)
[2021-12-24 05:36] LABS: CALCIUM 9.2 MG/DL (8.5-10.1)
[2021-12-24 05:40] LABS: CREATININE SERUM 0.96 MG/DL (0.60-1.30)
[2021-12-24] MEDS ORDERED: METF-397 PO ×2 (06:41)
--- NOTE | 2021-12-24 06:43 | Discharge Inst-Post CATH ---
Discharge Inst-CATH/EP Problems Reviewed?: Yes Post Cardiac Cath/EP D/C Inst Follow Up/Plan Hold Metformin for [address] Abraham in 2 weeks <b>CARDIAC CATH/EP PROCEDURE DISCHARGE INSTRUCTIONS</b> ACTIVITY * Go Home directly and rest. * Limit activity of the leg (or wrist if it was used) for 7 days including aerobics, swimming, jogging, bicycling, etc. * Restrict stair-climbing for 7 days if possible, if not, climb up with your non-cath leg, then bring together on the same step. * Avoid lifting, pushing, pulling or excessive movement of the affected extremity for 7 days. * Customary sexual activity may be resumed after 2 days-use caution not to use a position that strains or causes pain to the affected extremity. * No driving for 24 hours. * NO SMOKING. * Avoid straining for bowel movements for 7 days. * Gentle walking on level ground is allowed. * Returning to work will depend on the type of procedure and the results. Your doctor will discuss this with you. CALL YOUR DOCTOR FOR ANY OF THE FOLLOWING: *If bleeding from the puncture site occurs- Apply gentle pressure to site with clean cloth and call your doctor or EMS. * If a knot or lump forms under the skin, increases in size, or causes pain. * If bruising appears to be worsening or moving further down your leg instead of disappearing. * Temperature above 101 F. CARE OF YOUR GROIN INCISION; * Bruising or purple discoloration of the skin near the puncture site is common. * You may shower only, no bathtub bathing for 5 days. Be careful to avoid slipping as your leg may feel stiff. * If a closure device was used on your femoral artery, please see the attached guide regarding care of the device and your leg. * Leave dressing on FOR 24 hours. CARE OF YOUR WRIST INCISION; * Bruising or purple discoloration of the skin near the puncture site is common. * You may shower. * DO NOT submerge wrist. * Leave dressing on FOR 24 hours. ANTOINETTE ABRAHAM MD Dec 24, 2021 06:43
[2021-12-24] MEDS ORDERED: ASPIRIN E.C. 81 MG (ECOTRIN) TAB PO SCH (09:00)
[2021-12-24] MEDS ORDERED: CLOPIDOGREL 75 MG (PLAVIX) TABLET PO SCH ×2 (09:00)
[2021-12-24] MEDS ORDERED: PANTOPRAZOLE 40 MG (PROTONIX) TAB PO SCH (09:00)
[2021-12-24] MEDS ORDERED: FUROSEMIDE 20 MG (LASIX) TAB PO SCH (09:00)
--- NOTE | 2021-12-24 10:06 | Cardiology Progress Note ---
Subjective Date Seen by Provider: Dec 24, 2021 Time Seen by Provider: 10:01 Subjective/Events-last exam Patient was seen and evaluated at bedside, feeling better. No new complaint. Groin is healing well. Review of Systems General: No Chills, No Night Sweats; Fatigue, Malaise; No Appetite, No Other HEENT: No Head Aches, No Visual Changes, No Eye Pain, No Ear Pain, No Dysphasia, No Sinus Congestion, No Post Nasal Drip, No Sore Throat, No Other Pulmonary: No Dyspnea, No Cough, No Pleuritic Chest Pain, No Other Cardiovascular: No: Chest Pain, Palpitations, Orthopnea, Paroxysmal Noc. Dyspnea, Edema, Lt Headedness, Other Objective-Cardiology Exam Last Set of Vital Signs Vital Signs 12/24/21 12/24/21 12/24/21 07:00 08:15 09:00 Temp 36.5 Pulse 74 Pulse Ox 97 O2 Delivery Room Air I&O Intake and Output 12/24/21 00:00 Intake Total 1450 ml Balance 1450 ml Intake Oral 450 ml IV Total 1000 ml # Voids 2 General: Alert, Oriented X3, Cooperative HEENT: Atraumatic, PERRLA Neck: Supple, No JVD, No Thyromegaly Lungs: Clear to Auscultation, Normal Air Movement Heart: Regular Rate, Normal S1, Normal S2, No Murmurs Abdomen: Normal Bowel Sounds, Soft, No Tenderness, No Hepatosplenomegaly, No Masses Extremities: No Clubbing, No Cyanosis, No Edema, Normal Pulses, No Tenderness/Swelling Skin: No Rashes, No Breakdown, No Significant Lesion Neuro: Normal Gait, Normal Speech, Strength at 5/5 X4 Ext, Normal Tone, Sensation Intact Psych/Mental Status: Mental Status NL, Mood NL Results Lab Laboratory Tests 12/24/21 04:55 A/P-Cardiology Admission Diagnosis Claudication Peripheral arterial disease Hypertension Hyperlipidemia Assessment/Plan Peripheral arterial disease, status post complex intervention and balloon angioplasty to the right SFA, popliteal artery, posterior tibial artery and peroneal artery. Educated about the lesion in the left leg. Patient is moving to [place]. And I instructed her to seek a cardiovascular physician after moving to [place]. Hypertension, restart home medication monitor blood pressure Hyperlipidemia, monitor lipids Patient was educated on compliance with medication. Will arrange for follow-up in my office in 1-2 ANTOINETTE QUAN MD Dec 24, 2021 10:06
== END 2021-12-24 09:45 | disposition home or self-care (01) ==
LOC: CATH 10:00 → ICU 13:36 → CATH 12-24 09:45
PROVIDERS: ATTEND Internal Medicine Cardiovascular Disease
DX: I70.92 Chronic total occlusion of artery of the extremities (principal); I73.9 Peripheral vascular disease, unspecified; I10 Essential (primary) hypertension; I25.10 Atherosclerotic heart disease of native coronary artery without angina pectoris; T82.856A Stenosis of peripheral vascular stent, initial encounter; E78.5 Hyperlipidemia, unspecified; E11.9 Type 2 diabetes mellitus without complications; E11.51 Type 2 diabetes mellitus with diabetic peripheral angiopathy without gangrene; E78.2 Mixed hyperlipidemia; J44.9 Chronic obstructive pulmonary disease, unspecified; Z79.899 Other long term (current) drug therapy; Z87.891 Personal history of nicotine dependence; Z95.820 Peripheral vascular angioplasty status with implants and grafts
CPT/HCPCS: 36247; 36248; 37224; 37228; 37232; 75716; 80048; 80053; 82947; 85027 ×2; 87081; C1725 ×4; C1760; C1769 ×3; C1887 ×3; C1894 ×2; 36415